=== PATIENT | female | born 1985 | race Hispanic/Latino ===

== ENCOUNTER 2024-01-23 05:40 | Inpatient (IN) | payer MEDICAID, OTHER ==
[2024-01-20 11:07] LABS: Hemoglobin 12.5 g/dL (12.0-15.5); Platelet Count 205 10x3/uL (150-450)
[2024-01-20 11:50] LABS: Syphilis Antibody Nonreactive (Nonreactive); Syphilis Antibody Index 0.04 S/CO (<1.00 Non-Reactive)
[2024-01-20 11:52] LABS: HBsAg Index 0.23 S/CO (0-0.99); HIV (1/2) Antibody/Antigen Non-Reactive (NonReactive); HIV 1/2 INDEX 0.07 S/CO (<1.00); Hep B Surf Ag Non-Reactive S/CO (NonReactive)
[2024-01-23 06:02] VITALS: BMI 27.8
[2024-01-23] MEDS ORDERED: Lactated Ringer's 1,000 ML IV SCH (06:02)
[2024-01-23] MEDS ORDERED: Carboprost 250 MCG/ML AMP IM PRN (06:02)
[2024-01-23] MEDS ORDERED: Ondansetron PF 4 MG/2 ML Vial IVP PRN ×6 (06:02→11:19)
[2024-01-23] MEDS ORDERED: Bicitra 30 ML UDCUP PO PRN (06:02)
[2024-01-23] MEDS ORDERED: Diphenoxylate HCl/Atropine Tablet PO PRN (06:02)
[2024-01-23] MEDS ORDERED: hydrALAZINE 20 MG/ML VIAL SLOW IVP PRN ×2 (06:02→11:19)
[2024-01-23] MEDS ORDERED: Misoprostol 200 MCG TAB PR PRN (06:02)
[2024-01-23] MEDS ORDERED: Oxytocin 30 units/NS 500 ML 500 ML IV SCH (06:02)
[2024-01-23] MEDS ORDERED: Tranexamic Acid 1,000 MG/10 ML VIAL IVP PRN (06:02)
[2024-01-23] MEDS ORDERED: Methylergonovine 0.2 MG/ML VIAL IM PRN (06:02)
[2024-01-23] MEDS ORDERED: Promethazine HCl 25 MG/ML VIAL IM PRN ×4 (06:02→11:19)
[2024-01-23] MEDS ORDERED: Meperidine HCl/PF 25 MG (1 mL) VIAL SLOW IVP PRN ×2 (06:53→10:56)
[2024-01-23] MEDS ORDERED: fentaNYL 50 mcg/mL 1 mL Vial SLOW IVP PRN (06:53)
[2024-01-23] MEDS ORDERED: Naloxone HCl 0.4 mg/ml Vial IVP PRN ×4 (06:53→10:56)
[2024-01-23] MEDS ORDERED: diphenhydrAMINE 50 MG/ML VIAL IVP PRN ×2 (06:53→10:56)
[2024-01-23] MEDS ORDERED: Naloxone HCl 0.4 mg/ml Vial IV PRN ×2 (06:53→10:56)
[2024-01-23] MEDS ORDERED: Moisturizing Cream (Eucerin) 113 GM JAR TOP PRN ×2 (06:53→10:56)
[2024-01-23] MEDS ORDERED: Communication Order-Pharmacy FS SCH ×2 (07:00→11:00)
[2024-01-23] MEDS ORDERED: Ketorolac Tromethamine 30 MG (1 mL) VIAL IVP SCH ×2 (07:00→11:00)
[2024-01-23] MEDS: CEFAZOLIN 2 GM in Sodium Chloride 0.9% 100 ML IVPB SCH (07:07)
[2024-01-23] MEDS: Famotidine/PF 20 mg/2ml Vial SLOW IVP PRN (07:07)
[2024-01-23] MEDS: Ketorolac Tromethamine 30 MG (1 mL) VIAL IVP PRN ×2 (10:28→16:49)
[2024-01-23] MEDS ORDERED: HYDROmorphone 0.5 MG/0.5 ML SYRINGE SLOW IVP PRN (10:56)
[2024-01-23] MEDS: fentaNYL 50 mcg/mL 1 mL Vial SLOW IVP PRN (11:02)
[2024-01-23] MEDS ORDERED: diphenhydrAMINE 25 MG CAP PO PRN (11:19)
[2024-01-23] MEDS ORDERED: Bisacodyl 10 MG SUPP PR PRN (11:19)
[2024-01-23] MEDS ORDERED: Lanolin Ointment 7 GM TUBE TOP PRN (11:19)
[2024-01-23] MEDS: Phytonadione Neonatal 1 MG/0.5 ML AMP ONE (12:17)
[2024-01-23] MEDS: Ondansetron PF 4 MG/2 ML Vial ONE (12:17)
[2024-01-23] MEDS: fentaNYL 50 mcg/mL 1 mL Vial ONE (12:17)
[2024-01-23] MEDS: PHENYLEPHRINE-NS 100 MCG/ML 10 ML SYRINGE ONE (12:17)
[2024-01-23] MEDS: Oxytocin 10 UNITS/ML VIAL ONE (12:17)
[2024-01-23] MEDS: Erythromycin Base 0.5% Oint 1 GM TUBE ONE (12:17)
[2024-01-23] MEDS: Boostrix 0.5 ML (Tdap) VIAL (>/=7 yrs of age) IM ONE (12:17)
[2024-01-23] MEDS: Morphine PF 10 MG/10 ML VIAL ONE (12:17)
[2024-01-23] MEDS: Docusate 100 MG CAP PO SCH (21:17)
[2024-01-23] MEDS: Ferrous Sulfate 325 MG TAB PO SCH (21:17)
[2024-01-24 05:09] LABS: Hematocrit 29.5 % (34.9-44.5); Hemoglobin 10.2 g/dL (12.0-15.5); Mean Corpuscular HGB CONC 34.6 g/dL (32.0-36.0); Mean Corpuscular Hemoglobin 32.2 pg (27.0-33.0); Mean Corpuscular Volume 93.1 fL (81.6-98.3); Mean Platelet Volume 9.6 fL (7.4-10.4); Platelet Count 169 10x3/uL (150-450); RBC Distribution Width 13.2 % (11.5-14.5); Red Blood Cell (RBC) Count 3.17 10x6/uL (3.90-5.03); White Blood Cell (WBC) Count 10.6 10x3/uL (3.5-10.5)
[2024-01-24] MEDS: Simethicone Chewable 80 MG TAB PO PRN (08:27)
[2024-01-24] MEDS: HYDROcodone/Acetaminophen 5/325 mg Tablet PO PRN (08:27)
[2024-01-24] MEDS: Prenatal Vitamin 1 TAB PO SCH (08:27)
[2024-01-24] MEDS: Ibuprofen 800 MG TAB PO SCH (14:10)
[2024-01-25] MEDS: HYDROcodone/Acetaminophen 5/325 mg Tablet PO PRN (04:02)
[2024-01-26 08:16] VITALS: BP 92/54; TEMP 97.9
== END 2024-01-26 16:05 | disposition home or self-care (01) | DRG 788 ==
LOC: CSHLD 05:40 → CSHPP 11:20
PROVIDERS: ADMIT Family Medicine; ATTEND Family Medicine
PROC: 10D00Z1 Extraction of Products of Conception, Low, Open Approach (ICD-10-PCS; principal; 2024-01-23)
DX: O34.211 Maternal care for low transverse scar from previous cesarean delivery (principal); Z37.0 Single live birth; O09.523 Supervision of elderly multigravida, third trimester; Z3A.39 39 weeks gestation of pregnancy
CPT/HCPCS: 36415; 51702; 85014; 85018; 85027; 85049; 86780; 86850; 86900; 86901; 87340; 87389; J1885; J2274; J2405; J2590; J3010; J3490